=== PATIENT | male | born 1985 | race American Indian/Alaskan Native ===

== ENCOUNTER 2016-10-08 01:24 | Emergency (ER) | payer SELFPAY ==
[2016-10-08 01:38] VITALS: BP 130/74
[2016-10-08 04:03] LABS: Urine Drugs of Abuse Note Disclamer
[2016-10-08 04:08] LABS: Mucus,Urine 3+ /HPF; WBC,Urine < 1.0 /HPF (0.0-6.0)
[2016-10-08 04:09] LABS: Bilirubin,Urine Negative (Negative); Blood,Urine Negative (Negative); Ketones,Urine Trace mg/dL (Negative); PH,Urine 5.5 (5.0-7.0); Protein,Urine <15 mg/dL mg/dL (Negative)
[2016-10-08 04:10] LABS: Leukocyte Esterase,Urine Negative (Negative); Nitrite,Urine Negative (Negative)
--- NOTE | 2016-10-11 15:18 | ED Elopement Review ---
ED Pt Elopement review - Results review Lab results: Laboratory Tests 10/08/16 10/08/16 03:57 03:57 Urine Color Yellow Urine Turbidity Clear Urine pH 5.5 Ur Specific [place] > 1.030 H Urine Protein <15 mg/dl Urine Glucose (UA) Negative Urine Ketones Trace Urine Blood Negative Urine Nitrite Negative Ur Reducing Substances Not Reportable Urine Bilirubin Negative Urine Ictotest Not Reportable Urine Urobilinogen 1.0 Ur Leukocyte Esterase Negative Urine WBC (Auto) < 1.0 Urine RBC (Auto) 2.0 Urine Mucus 3+ Urine Opiates Screen Presumptive negative Urine Methadone Screen Presumptive negative Ur Barbiturates Screen Presumptive negative Ur Phencyclidine Scrn Presumptive negative Ur Amphetamines Screen Presumptive negative U Benzodiazepines Scrn Presumptive positive Urine Cocaine Screen Presumptive negative U Marijuana (THC) Screen Presumptive positive Drugs of Abuse Note Disclamer - Call Back decision Pt Call Back Decision: No action required
== END 2016-10-08 02:58 | disposition left against medical advice (07) ==
LOC: ED 01:24
DX: F41.9 Anxiety disorder, unspecified (principal); L29.9 Pruritus, unspecified; Z53.21 Procedure and treatment not carried out due to patient leaving prior to being seen by health care provider
CPT/HCPCS: 80307; 81001

== ENCOUNTER 2017-06-19 16:41 | Emergency (ER) | payer SELFPAY ==
[2017-06-19 16:48] VITALS: BP 124/71
== END 2017-06-19 19:35 | disposition left against medical advice (07) ==
LOC: ED 16:41
DX: A64 Unspecified sexually transmitted disease (principal); Z53.21 Procedure and treatment not carried out due to patient leaving prior to being seen by health care provider

== ENCOUNTER 2019-01-30 15:17 | Emergency (ER) | payer OTHER ==
--- NOTE | 2019-01-30 15:31 | Event Note ---
ED Screening Note ED Screening Note: NOTE PT HAS 2 CHARTS HERE MID DECEMBER WITH SAME HOME ON BACTRIM WORSE SYMPTOMS NO FEVER POS ABD AND BACK PAIN PMH SPIN BIFIDA HTN DM CHRONIC UTI HX OPIATE USE NO CIG/ETOH/DRUGS This initial assessment/diagnostic orders/clinical plan/treatment(s) is/are subject to change based on patients health status, clinical progression and re- assessment by fellow clinical providers in the ED. Further treatment and workup at subsequent clinical providers discretion. Patient/guardian urged not to elope from the ED as their condition may be serious if not clinically assessed and managed. Initial orders include: URINE LABS [employer] FACILITATOR
[2019-01-30 15:37] VITALS: BP 124/78
[2019-01-30] MEDS ORDERED: ROCEPHIN IM ONE (15:37)
[2019-01-30] MEDS ORDERED: XYLOCAINE 1% MPF 5 mL INFILTRATI ONE (15:37)
[2019-01-30] MEDS ORDERED: ZITHROMAX PO ONE (15:38)
--- NOTE | 2019-01-30 15:44 | Emergency Department Report ---
ED Dysuria HPI - HPI Chief Complaint: Urogenital-Male Stated Complaint: STD CHECK Time Seen by Provider: 01/30/19 15:28 Duration: 3 Days Location of Discomfort: Urethra (dysuria) Severity: Mild Symptoms: Dysuria: Yes, Frequency: No, Suprapubic Pain: No, Flank Pain: No, Fever: No, Hematuria: No, Abdominal Pain: No, Previous UTI's: No Other History: HERE WITH PENILE DC. TINGLING WITH URINATION. LESION ON SCROTUM ED Review of Systems ROS: Stated complaint: STD CHECK Other details as noted in HPI Comment: All other systems reviewed and negative ED Past Medical Hx - Past Medical History Previous Medical History?: Yes Hx Psychiatric Treatment: Yes (adhd) - Surgical History Past Surgical History?: No - Family History Family history: no significant - Social History Smoking Status: Current Every Day Smoker Substance Use Type: Marijuana Dysuria Exam - Exam General: Vital signs noted. No distress. Alert and acting appropriately. Exam: Yes Moist Mucous Membranes, No CVA Tenderness, No Abdominal Tenderness, No Rigidity or Guarding ED Course Vital Signs 01/30/19 15:35 Temperature 97.6 F Pulse Rate 65 Respiratory 18 Rate Blood Pressure 124/78 [Right] O2 Sat by Pulse 98 Oximetry ED Medical Decision Making - Medical Decision Making penile dc in high risk male unprotected sex rocephin and azithro LESION NO HERPETIC AND NOT WART IS FOLLICULAR IN APPEARANCE ua/ and GC sent call with results dc home with dc plan of care- educated on safe sex Vital Signs 01/30/19 15:35 Temperature 97.6 F Pulse Rate 65 Respiratory 18 Rate Blood Pressure 124/78 [Right] O2 Sat by Pulse 98 Oximetry - Differential Diagnosis std Critical care attestation.: If time is entered above; I have spent that time in minutes in the direct care of this critically ill patient, excluding procedure time. ED Disposition Clinical Impression: Concern about STD in male without diagnosis Disposition: DC-01 TO HOME OR SELFCARE Is pt being admited?: No Does the pt Need Aspirin: No Condition: Stable Instructions: Safe Sex (ED) Referrals: [facility] [Outside] - 3-5 Days Time of Disposition: 15:44
[2019-01-30 16:54] LABS: Bacteria,Urine 1+ /HPF (Negative); Bilirubin,Urine NEG (Negative); Blood,Urine LG (Negative); Color,Urine Yellow (Yellow); Mucus,Urine FEW /HPF; Protein,Urine <15 mg/dL mg/dL (Negative); Urobilinogen,Urine < 2.0 mg/dL (<2.0)
[2019-01-30 16:56] LABS: RBC,Urine > 182.0 /HPF (0.0-6.0)
== END 2019-01-30 17:09 | disposition home or self-care (01) ==
LOC: ED 15:17
DX: R36.9 Urethral discharge, unspecified (principal); R30.0 Dysuria; F17.200 Nicotine dependence, unspecified, uncomplicated; F12.10 Cannabis abuse, uncomplicated; F90.9 Attention-deficit hyperactivity disorder, unspecified type; Z71.1 Person with feared health complaint in whom no diagnosis is made
CPT/HCPCS: 81001; 87086; 87591; 96372; 99283; J0696

== ENCOUNTER 2020-05-19 01:44 | Emergency (ER) | payer SELFPAY ==
[2020-05-19 02:51] VITALS: BP 110/74
--- NOTE | 2020-05-19 03:57 | Emergency Department Report ---
ED ENT HPI - General Chief complaint: Dental/Oral Stated complaint: TOOTHACHE Time Seen by Provider: 05/19/20 03:24 Source: patient Mode of arrival: Ambulatory Limitations: No Limitations - History of Present Illness MD complaint: tooth pain -: Gradual Location: tooth # Severity: mild, moderate Quality: aching, dull Consistency: constant Improves with: none Worsens with: none, eating Associated Symptoms: denies: fever - Related Data Previous Rx's Medication Instructions Recorded Last Taken Type Amoxicillin [Amoxicillin TAB] 875 mg PO BID #20 tablet 05/19/20 Unknown Rx Chlorhexidine Mouthwash [Peridex] 15 ml MM BID #1 bottle 05/19/20 Unknown Rx Ketorolac [Toradol] 10 mg PO Q6H PRN #15 tablet 05/19/20 Unknown Rx Lidocaine Viscous 2% 5 ml MM Q3H PRN #120 udc 05/19/20 Unknown Rx Allergies Allergy/AdvReac Type Severity Reaction Status Date / Time No Known Allergies Allergy Verified 01/30/19 15:37 ED Dental HPI - General Chief complaint: Dental/Oral Stated complaint: TOOTHACHE Time Seen by Provider: 05/19/20 03:24 Source: patient Mode of arrival: Ambulatory Limitations: No Limitations - Related Data Previous Rx's Medication Instructions Recorded Last Taken Type Amoxicillin [Amoxicillin TAB] 875 mg PO BID #20 tablet 05/19/20 Unknown Rx Chlorhexidine Mouthwash [Peridex] 15 ml MM BID #1 bottle 05/19/20 Unknown Rx Ketorolac [Toradol] 10 mg PO Q6H PRN #15 tablet 05/19/20 Unknown Rx Lidocaine Viscous 2% 5 ml MM Q3H PRN #120 udc 05/19/20 Unknown Rx Allergies Allergy/AdvReac Type Severity Reaction Status Date / Time No Known Allergies Allergy Verified 01/30/19 15:37 ED Review of Systems ROS: Stated complaint: TOOTHACHE Other details as noted in HPI Comment: All other systems reviewed and negative ED Past Medical Hx - Past Medical History Hx Psychiatric Treatment: Yes (adhd) - Social History Smoking Status: Current Every Day Smoker Substance Use Type: Alcohol, Marijuana - Medications Home Medications: Home Medications Medication Instructions Recorded Confirmed Last Taken Type Amoxicillin [Amoxicillin TAB] 875 mg PO BID #20 tablet 05/19/20 Unknown Rx Chlorhexidine Mouthwash [Peridex] 15 ml MM BID #1 bottle 05/19/20 Unknown Rx Ketorolac [Toradol] 10 mg PO Q6H PRN #15 tablet 05/19/20 Unknown Rx Lidocaine Viscous 2% 5 ml MM Q3H PRN #120 udc 05/19/20 Unknown Rx ED Physical Exam - General Limitations: No Limitations General appearance: alert, in no apparent distress - Head Head exam: Present: atraumatic, normocephalic - Eye Eye exam: Present: normal appearance, PERRL, EOMI Pupils: Present: normal accommodation - ENT ENT exam: Present: normal exam, mucous membranes moist, TM's normal bilaterally, normal external ear exam, other (Significant areas of dental erosion with a severe erosion and fractured tooth #28 there is some adjacent gingival swelling suggestive of some some gingivitis and likely dental abscess. Tongue and uvula midline no exudate. Voice is normal. No evidence of any peritonsillar abscess is noted. Small area area of lymphadenopathy to the right tonsillar node.) - Neck Neck exam: Present: normal inspection, full ROM, lymphadenopathy - Respiratory Respiratory exam: Present: normal lung sounds bilaterally. Absent: respiratory distress - Cardiovascular Cardiovascular Exam: Present: regular rate, normal rhythm. Absent: systolic murmur, diastolic murmur, rubs, gallop - GI/Abdominal GI/Abdominal exam: Present: soft, normal bowel sounds - Rectal Rectal exam: Present: deferred - Extremities Exam Extremities exam: Present: normal inspection - Back Exam Back exam: Present: normal inspection. Absent: CVA tenderness (R), CVA tenderness (L) - Neurological Exam Neurological exam: Present: alert, oriented X3, CN II-XII intact - Psychiatric Psychiatric exam: Present: normal affect, normal mood - Skin Skin exam: Present: warm, dry, intact, normal color. Absent: rash ED Course Vital Signs 05/19/20 01:50 Temperature 97.5 F L Pulse Rate 65 Respiratory 18 Rate Blood Pressure 110/74 O2 Sat by Pulse 98 Oximetry Critical care attestation.: If time is entered above; I have spent that time in minutes in the direct care of this critically ill patient, excluding procedure time. ED Disposition Clinical Impression: Dental abscess, Dental caries Disposition: DC- TO HOME OR SELFCARE Is pt being admited?: No Does the pt Need Aspirin: No Condition: Stable Instructions: Toothache (ED), Acute dental trauma (ED), Dental Abscess (ED), Dental Caries (ED) Prescriptions: Amoxicillin [Amoxicillin TAB] 875 mg PO BID #20 tablet Lidocaine Viscous 2% 5 ml MM Q3H PRN #120 udc PRN Reason: Pain, Moderate (4-6) Chlorhexidine Mouthwash [Peridex] 15 ml MM BID #1 bottle Ketorolac [Toradol] 10 mg PO Q6H PRN #15 tablet PRN Reason: Pain Referrals: [facility] [Outside] - 3-5 Days
== END 2020-05-19 04:15 | disposition home or self-care (01) ==
LOC: ED 01:44
DX: K04.7 Periapical abscess without sinus (principal); K02.9 Dental caries, unspecified; F17.200 Nicotine dependence, unspecified, uncomplicated; F12.10 Cannabis abuse, uncomplicated; Z79.2 Long term (current) use of antibiotics; Z79.899 Other long term (current) drug therapy
CPT/HCPCS: 99282